=== PATIENT | female | born 1970 | race Caucasian/White ===

== ENCOUNTER → 2016-09-14 | Outpatient (CLI) | payer OTHER ==
[~2016-09-14] MED LIST: ALEVE220 MG PO; AMOXICILLIN 50500 MG PO; AMOXICILLIN 8751 TAB PO; AUGMENTIN XR 101 TER PO; BACTRIM DS 8001 TAB PO; CELEXA 20MG20 MG/TAB PO; CIPRO 500MG TA500 MG PO; CIPRO500 MG PO; FLAGYL500 MG PO; FLEXERIL; FLEXERIL10 MG PO; IBUPROFEN1 CRY PO; LORTAB 5/500 501 TAB PO; LORTAB PO; MOTRIN 800800 MG/TAB PO; MOXIFLOXACIN H400 MG PO; NAPROSYN500 MG PO; NAPROXEN1 POW; NO HOME MEDICATIONS; NORCO 325 MG-51 TAB PO; PEN-VEE K500 MG PO; PHENERGAN 25 TA25 MG PO; VOLTAREN 50MG T50 MG PO; ZITHROMAX 250M250 MG PO; ZOFRAN ODT4 MG PO; ZOLOFT 50MG50 MG PO; [UNRECOGNIZED DRUG - OTHER]
== END ==
LOC: COL.RAD 10:25
DX: K57.92 Diverticulitis of intestine, part unspecified, without perforation or abscess without bleeding (principal); Z90.49 Acquired absence of other specified parts of digestive tract
CPT/HCPCS: Q9967

== ENCOUNTER 2016-10-23 13:15 | Emergency (ER) | payer OTHER ==
[~2016-10-23] VITALS: Ht 172.7 cm; Wt 109.1 kg
[~2016-10-23 13:15] MED LIST changes: -AMOXICILLIN 50500 MG PO; -BACTRIM DS 8001 TAB PO; -MOTRIN 800800 MG/TAB PO; -ZOFRAN ODT4 MG PO
[2016-10-23 13:26] VITALS: TEMP 98.2
[2016-10-23 14:24] LABS: BASO % 0.3 % (0.0-2.0); EOS # 0.1 (0.0-0.7); EOS % 0.7 % (0-4.0); GRAN % 70.5 % (42.2-75.2); HEMATOCRIT 40.3 % (37.0-47.0); HEMOGLOBIN 13.3 g/dl (12.5-16.0); LYMPH # 2.7 (1.2-3.4); LYMPH % 23.4 % (20.0-51.0); MEAN CELL VOLUME 85 fl (80.0-100.0); MEAN CORPUSCULAR HEMOGLOBIN 28 pg (27.0-31.0); MEAN CORPUSCULAR HGB CONC 33 g/dl (33.0-37.0); MEAN PLATELET VOLUME 10.4 fl (7.4-10.4); MONO # 0.6 (0.1-0.6); MONO % 4.8 % (1.7-9.3); PLATELET COUNT 295 K/mm3 (130-400); RED BLOOD COUNT 4.73 M/mm3 (4.10-5.30); REDCELL DISTRIBUTION WIDTH-CV 13.3 % (11.5-14.5); WHITE BLOOD COUNT 11.4 K/mm3 (4.8-10.8)
[2016-10-23 14:37] LABS: ADJUSTED CALCIUM 9.1 mg/dL (8.4-10.2); ALANINE AMINOTRANSFERASE 19 U/L (9-52); ALBUMIN 4.5 gm/dL (3.5-5.0); ALKALINE PHOSPHATASE 90 U/L (50-136); ANION GAP 14 mmol/L (7-16); BILIRUBIN,TOTAL 0.9 mg/dL (0.0-1.0); BLOOD UREA NITROGEN 9 mg/dL (7-17); CALCIUM 9.5 mg/dL (8.4-10.2); CARBON DIOXIDE 22 mmol/L (22-30); CHLORIDE 106 mmol/L (98-107); GLUCOSE 94 mg/dL (74-106); LIPASE 65 U/L (23-300); POTASSIUM 3.9 mmol/L (3.4-5.0); SODIUM 142 mmol/L (137-145)
[2016-10-23 14:38] LABS: C-REACTIVE PROTEIN < 0.5 mg/dL (0.0-0.9)
[2016-10-23 14:44] LABS: PH 7 (5-8); SQUAMOUS EPITHELIAL 0-2 /hpf; URINE APPEARANCE Clear; URINE BACTERIA None Seen /hpf; URINE BILIRUBIN Negative (NEGATIVE); URINE BLOOD 1+ (NEGATIVE); URINE COLOR Straw; URINE GLUCOSE Negative (NEGATIVE); URINE KETONE Negative (NEGATIVE); URINE RBC 0-2 /hpf; URINE UROBILINOGEN Negative (NEGATIVE); URINE WBC 0-2 /hpf
[2016-10-23] MEDS ORDERED: AMOXICILLIN 8751 TAB PO (16:59)
[2016-10-23] MEDS ORDERED: NORCO 325 MG-51 TAB PO (17:02)
[2016-10-23] MEDS ORDERED: ZOFRAN ODT4 MG PO (17:02)
[2016-10-23 17:19] VITALS: BP 138/81; PULSE 68
== END 2016-10-23 17:17 | disposition home or self-care (01) ==
LOC: COL.ER 13:15
PROVIDERS: Emergency Medicine
DX: K57.32 Diverticulitis of large intestine without perforation or abscess without bleeding (principal)
CPT/HCPCS: J2270; J2405; J7030; Q9967

== ENCOUNTER → 2016-10-30 | Outpatient (CLI) | payer OTHER ==
[~2016-10-30] MED LIST changes: +AMOXICILLIN 50500 MG PO; +BACTRIM DS 8001 TAB PO; +MOTRIN 800800 MG/TAB PO; +ZOFRAN ODT4 MG PO
== END ==
LOC: COL.RAD 08:00
DX: Z53.9 Procedure and treatment not carried out, unspecified reason (principal)

== ENCOUNTER 2016-11-04 16:31 | Emergency (ER) | payer OTHER ==
[~2016-11-04] VITALS: Ht 172.7 cm; Wt 109.1 kg
[~2016-11-04 16:31] MED LIST changes: -AMOXICILLIN 50500 MG PO; -BACTRIM DS 8001 TAB PO; -MOTRIN 800800 MG/TAB PO
[2016-11-04 16:35] VITALS: TEMP 98.7
[2016-11-04] MEDS ORDERED: MOTRIN 800800 MG/TAB PO (16:51)
[2016-11-04 17:04] LABS: BASO % 0.3 % (0.0-2.0); EOS # 0.2 (0.0-0.7); EOS % 1.7 % (0-4.0); GRAN # 6.3 (1.4-6.5); GRAN % 63.2 % (42.2-75.2); HEMATOCRIT 39.8 % (37.0-47.0); HEMOGLOBIN 13.4 g/dl (12.5-16.0); LYMPH # 2.9 (1.2-3.4); LYMPH % 29.3 % (20.0-51.0); MEAN CELL VOLUME 85 fl (80.0-100.0); MEAN CORPUSCULAR HEMOGLOBIN 29 pg (27.0-31.0); MEAN CORPUSCULAR HGB CONC 34 g/dl (33.0-37.0); MONO # 0.5 (0.1-0.6); MONO % 5.2 % (1.7-9.3); PLATELET COUNT 357 K/mm3 (130-400); RED BLOOD COUNT 4.71 M/mm3 (4.10-5.30); REDCELL DISTRIBUTION WIDTH-CV 13.3 % (11.5-14.5)
[2016-11-04 17:21] LABS: ADJUSTED CALCIUM 9.4 mg/dL (8.4-10.2); ALANINE AMINOTRANSFERASE 21 U/L (9-52); ALBUMIN 4.3 gm/dL (3.5-5.0); ALKALINE PHOSPHATASE 82 U/L (50-136); ANION GAP 14 mmol/L (7-16); BILIRUBIN,TOTAL 0.9 mg/dL (0.0-1.0); BLOOD UREA NITROGEN 9 mg/dL (7-17); CALCIUM 9.6 mg/dL (8.4-10.2); CARBON DIOXIDE 22 mmol/L (22-30); CHLORIDE 106 mmol/L (98-107); CREATININE, serum 0.59 mg/dL (0.52-1.25); GLUCOSE 107 mg/dL (74-106); LIPASE 70 U/L (23-300); POTASSIUM 3.7 mmol/L (3.4-5.0); SODIUM 142 mmol/L (137-145)
[2016-11-04 17:25] LABS: C-REACTIVE PROTEIN < 0.5 mg/dL (0.0-0.9)
[2016-11-04 17:56] LABS: PH 7 (5-8); SQUAMOUS EPITHELIAL None Seen /hpf; URINE APPEARANCE Clear; URINE BACTERIA None Seen /hpf; URINE BILIRUBIN Negative (NEGATIVE); URINE BLOOD 3+ (NEGATIVE); URINE COLOR Yellow; URINE GLUCOSE Negative (NEGATIVE); URINE KETONE 1+ (NEGATIVE); URINE UROBILINOGEN Negative (NEGATIVE); URINE WBC 0-2 /hpf
[2016-11-04 18:48] VITALS: BP 118/80; PULSE 60
[2016-11-04] MEDS ORDERED: BACTRIM DS 8001 TAB PO (18:50)
[2016-11-04] MEDS ORDERED: PHENERGAN 25 TA25 MG PO (18:50)
== END 2016-11-04 19:00 | disposition home or self-care (01) ==
LOC: COL.ER 16:31
PROVIDERS: Emergency Medicine
DX: K57.32 Diverticulitis of large intestine without perforation or abscess without bleeding (principal); F17.210 Nicotine dependence, cigarettes, uncomplicated
CPT/HCPCS: J1170; J2405; J2550; J7030

== ENCOUNTER → 2016-11-07 | Outpatient (CLI) | payer OTHER ==
[~2016-11-07] MED LIST changes: +AMOXICILLIN 50500 MG PO; +BACTRIM DS 8001 TAB PO; +MOTRIN 800800 MG/TAB PO
== END ==
LOC: COL.RAD 09:23
DX: K57.32 Diverticulitis of large intestine without perforation or abscess without bleeding (principal); K56.69 Other intestinal obstruction; R10.32 Left lower quadrant pain

== ENCOUNTER 2016-11-09 13:23 | Inpatient (IN) | payer OTHER ==
[~2016-11-09] VITALS: Ht 175.3 cm; Wt 102.0 kg
[~2016-11-09 13:23] MED LIST changes: -AMOXICILLIN 50500 MG PO
[2016-11-15] VITALS (10 sets, daily range): BP systolic 128–151; BP diastolic 58–93; PULSE 68–93; TEMP 98–98.9
[2016-11-16 01:41] VITALS: BP 120/71; PULSE 94; TEMP 98.4
[2016-11-16 05:10] VITALS: BP 116/61; PULSE 82; TEMP 98.2
[2016-11-16 07:08] LABS: HEMOGLOBIN 12.1 g/dl (12.5-16.0)
[2016-11-16 07:19] LABS: HEMATOCRIT 36.5 % (37.0-47.0)
[2016-11-16 07:33] LABS: CALCIUM 8.4 mg/dL (8.4-10.2); CREATININE, serum 0.61 mg/dL (0.52-1.25); POTASSIUM 3.5 mmol/L (3.4-5.0)
[2016-11-16 10:16] VITALS: BP 116/69; PULSE 84; TEMP 98.5
[2016-11-16 13:55] VITALS: BP 118/74; PULSE 88; TEMP 97.9
[2016-11-16 18:12] VITALS: BP 115/68; PULSE 90; TEMP 98.1
[2016-11-16 21:32] VITALS: BP 136/74; PULSE 84; TEMP 98.4
[2016-11-17 05:26] VITALS: BP 126/70; PULSE 90; TEMP 97.2
[2016-11-17 09:57] VITALS: BP 127/66; PULSE 88; TEMP 98.2
== END 2016-11-17 15:00 | disposition home or self-care (01) | DRG 329 ==
LOC: INPTSU 11-15 11:55 → SURG 11-15 13:00 → JCC 11-15 20:37
PROVIDERS: Surgery
PROC: 8E0W4CZ Robotic Assisted Procedure of Trunk Region, Percutaneous Endoscopic Approach (ICD-10-PCS; 2016-11-15)
PROC: 0DTN7ZZ Resection of Sigmoid Colon, Via Natural or Artificial Opening (ICD-10-PCS; principal; 2016-11-15 13:00)
DX: K57.20 Diverticulitis of large intestine with perforation and abscess without bleeding (principal); E43 Unspecified severe protein-calorie malnutrition
CPT/HCPCS: A4315; A9284; J0694; J1100; J1170; J1650; J1885; J2405; J2550; J2704; J3010; J7042; J7120

== ENCOUNTER 2016-12-18 14:43 | Emergency (ER) | payer OTHER ==
[~2016-12-18] VITALS: Ht 172.7 cm; Wt 99.2 kg
[2016-12-18 14:46] VITALS: BP 114/74; PULSE 87; TEMP 98.4
[2016-12-18] MEDS ORDERED: AMOXICILLIN 50500 MG PO (15:49)
== END 2016-12-18 16:07 | disposition home or self-care (01) ==
LOC: COL.ER 14:43
DX: K04.7 Periapical abscess without sinus (principal); K08.89 Other specified disorders of teeth and supporting structures

== ENCOUNTER 2017-08-29 13:56 | Emergency (ER) | payer OTHER ==
[~2017-08-29] VITALS: Ht 172.7 cm; Wt 105.8 kg
[~2017-08-29 13:56] MED LIST changes: +AMOXICILLIN 50500 MG PO
[2017-08-29 13:59] VITALS: BP 141/77; TEMP 99.3
[2017-08-29 15:09] VITALS: PULSE 87
== END 2017-08-29 15:10 | disposition home or self-care (01) ==
LOC: COL.ER 13:56
DX: J11.1 Influenza due to unidentified influenza virus with other respiratory manifestations (principal)

== ENCOUNTER 2018-01-02 15:52 | Emergency (ER) | payer OTHER ==
[~2018-01-02] VITALS: Ht 172.7 cm; Wt 116.5 kg
[2018-01-02 15:53] VITALS: TEMP 98.7
[2018-01-02 16:33] LABS: BASO % 0.3 % (0.0-2.0); EOS # 0.1 (0.0-0.7); EOS % 1.5 % (0-4.0); GRAN # 5.4 (1.4-6.5); GRAN % 61.4 % (42.2-75.2); HEMATOCRIT 37.9 % (37.0-47.0); LYMPH # 2.6 (1.2-3.4); LYMPH % 29.7 % (20.0-51.0); MEAN CELL VOLUME 86 fl (80.0-100.0); MEAN CORPUSCULAR HEMOGLOBIN 30 pg (27.0-31.0); MEAN CORPUSCULAR HGB CONC 34 g/dl (33.0-37.0); MEAN PLATELET VOLUME 10.2 fl (7.4-10.4); MONO # 0.6 (0.1-0.6); MONO % 6.5 % (1.7-9.3); PLATELET COUNT 191 K/mm3 (130-400); REDCELL DISTRIBUTION WIDTH-CV 12.6 % (11.5-14.5)
[2018-01-02 16:34] LABS: COLLECTION METHOD CLEAN CATCH
[2018-01-02 16:40] LABS: MUCOUS Present /lpf; PH 6 (5-8); SQUAMOUS EPITHELIAL 0-2 /hpf; URINE APPEARANCE Clear; URINE BACTERIA Rare /hpf; URINE BILIRUBIN Negative (NEGATIVE); URINE BLOOD 1+ (NEGATIVE); URINE COLOR Straw; URINE GLUCOSE Negative (NEGATIVE); URINE KETONE Negative (NEGATIVE); URINE LEUKOCYTE ESTERASE Negative (NEGATIVE); URINE NITRATE Negative (NEGATIVE); URINE PROTEIN(semi-quant) Negative (NEGATIVE); URINE RBC 0-2 /hpf; URINE UROBILINOGEN Negative (NEGATIVE)
[2018-01-02 16:46] LABS: ALBUMIN 3.9 gm/dL (3.5-5.0); BILIRUBIN,TOTAL 0.5 mg/dL (0.0-1.0); C-REACTIVE PROTEIN 0.7 mg/dL (0.0-0.9); CALCIUM 9.3 mg/dL (8.4-10.2); CREATININE, serum 0.63 mg/dL (0.52-1.25); POTASSIUM 3.9 mmol/L (3.4-5.0); TOTAL PROTEIN 7.9 gm/dL (6.4-8.2)
[2018-01-02] MEDS ORDERED: ULTRAM 50MG TAB50 MG PO (17:32)
[2018-01-02 17:43] VITALS: BP 130/87; PULSE 62
== END 2018-01-02 17:44 | disposition home or self-care (01) ==
LOC: COL.ER 15:52
PROVIDERS: Emergency Medicine
DX: R10.31 Right lower quadrant pain (principal); Z98.51 Tubal ligation status; Z90.49 Acquired absence of other specified parts of digestive tract; Z87.19 Personal history of other diseases of the digestive system

== ENCOUNTER 2019-07-18 20:33 | Emergency (ER) | payer OTHER ==
[~2019-07-18] VITALS: Ht 172.7 cm; Wt 129.5 kg
[~2019-07-18 20:33] MED LIST changes: +PROTONIX 40MG T40 MG PO; +ULTRAM 50MG TAB50 MG PO
[2019-07-18 20:43] VITALS: BP 133/81; TEMP 98.9
[2019-07-18 21:16] LABS: COLLECTION METHOD CLEAN CATCH
[2019-07-18 21:25] LABS: MUCOUS Present /lpf; PH 5 (5-8); SQUAMOUS EPITHELIAL 0-2 /hpf; URINE APPEARANCE Clear; URINE BACTERIA None Seen /hpf; URINE BILIRUBIN Negative (NEGATIVE); URINE BLOOD 1+ (NEGATIVE); URINE COLOR Yellow; URINE GLUCOSE Negative (NEGATIVE); URINE KETONE Negative (NEGATIVE); URINE LEUKOCYTE ESTERASE Negative (NEGATIVE); URINE NITRATE Negative (NEGATIVE); URINE PROTEIN(semi-quant) Negative (NEGATIVE); URINE RBC 0-2 /hpf; URINE UROBILINOGEN Negative (NEGATIVE)
[2019-07-18] MEDS ORDERED: NEURONTIN300 MG/CAP PO (21:25)
[2019-07-18] MEDS ORDERED: FLEXERIL 1010 MG/TAB PO (21:26)
[2019-07-18] MEDS ORDERED: NORCO 325 MG-51 TAB PO (22:19)
[2019-07-18 22:20] VITALS: PULSE 85
== END 2019-07-18 22:24 | disposition home or self-care (01) ==
LOC: COL.ER 20:33
PROVIDERS: Physician Assistant
DX: M25.551 Pain in right hip (principal); M54.9 Dorsalgia, unspecified

== ENCOUNTER 2020-06-05 19:44 | Emergency (ER) | payer OTHER ==
[~2020-06-05] VITALS: Ht 172.7 cm; Wt 129.5 kg
[~2020-06-05 19:44] MED LIST changes: +FLEXERIL 1010 MG/TAB PO; +NEURONTIN300 MG/CAP PO
[2020-06-05 20:11] LABS: COLLECTION METHOD CLEAN CATCH
[2020-06-05 20:25] LABS: MUCOUS Present /lpf; PH 7 (5-8); SQUAMOUS EPITHELIAL None Seen /hpf; URINE APPEARANCE Clear; URINE BACTERIA None Seen /hpf; URINE BILIRUBIN Negative (NEGATIVE); URINE BLOOD 1+ (NEGATIVE); URINE COLOR Straw; URINE GLUCOSE Negative (NEGATIVE); URINE KETONE Negative (NEGATIVE); URINE LEUKOCYTE ESTERASE Negative (NEGATIVE); URINE NITRATE Negative (NEGATIVE); URINE PROTEIN(semi-quant) Negative (NEGATIVE); URINE RBC 0-2 /hpf; URINE UROBILINOGEN Negative (NEGATIVE)
[2020-06-05 20:40] LABS: BASO % 0.3 % (0.0-2.0); EOS # 0.3 (0.0-0.7); EOS % 2.5 % (0-4.0); GRAN # 6.8 (1.4-6.5); GRAN % 60.6 % (42.2-75.2); HEMOGLOBIN 14.4 g/dl (12.5-16.0); LYMPH # 3.3 (1.2-3.4); LYMPH % 29.8 % (20.0-51.0); MEAN CELL VOLUME 88 fl (80.0-100.0); MEAN CORPUSCULAR HEMOGLOBIN 29 pg (27.0-31.0); MEAN CORPUSCULAR HGB CONC 33 g/dl (33.0-37.0); MONO # 0.7 (0.1-0.6); MONO % 6.4 % (1.7-9.3); PLATELET COUNT 317 K/mm3 (130-400); RED BLOOD COUNT 5.02 M/mm3 (4.10-5.30); REDCELL DISTRIBUTION WIDTH-CV 13.2 % (11.5-14.5)
[2020-06-05 20:52] LABS: ALBUMIN 4.7 gm/dL (3.5-5.0); BILIRUBIN,TOTAL 0.6 mg/dL (0.0-1.0); C-REACTIVE PROTEIN 0.6 mg/dL (0.0-0.9); CALCIUM 9.1 mg/dL (8.4-10.2); CREATININE, serum 0.97 (0.52-1.25); POTASSIUM 3.9 mmol/L (3.4-5.0); TOTAL PROTEIN 8.1 gm/dL (6.4-8.2)
[2020-06-05 22:03] VITALS: TEMP 98
[2020-06-05] MEDS ORDERED: NORCO 325 MG-51 TAB PO (22:08)
[2020-06-05 22:31] VITALS: BP 144/75; PULSE 675
== END 2020-06-05 23:35 | disposition home or self-care (01) ==
LOC: COL.ER 19:44
PROVIDERS: Nurse Practitioner
DX: M54.5 Low back pain (principal); Z87.891 Personal history of nicotine dependence; Z90.49 Acquired absence of other specified parts of digestive tract; Z32.02 Encounter for pregnancy test, result negative; Z88.1 Allergy status to other antibiotic agents
CPT/HCPCS: J1170; J2405; J7030; Q9967

== ENCOUNTER → 2021-07-21 | Outpatient (CLI) | payer OTHER | LOC: MC.RAD 10:10 | DX: Z12.31 Encounter for screening mammogram for malignant neoplasm of breast (principal); N63.20 Unspecified lump in the left breast, unspecified quadrant ==

== ENCOUNTER → 2021-07-22 | Outpatient (CLI) | payer OTHER | LOC: MC.RAD 13:00 | DX: N64.89 Other specified disorders of breast (principal) ==